=== PATIENT | female | born 1960 | race Caucasian/White ===

== ENCOUNTER 2024-04-12 13:37 | Outpatient (CLI) | payer BC, SELFPAY ==
--- NOTE | ~2024-04-12 | US_ITS ---
EXAMINATION: US abdomen limited DATE: 04/12/2024 14:02 INDICATION: Abnormal liver function tests. TECHNIQUE: Multiple grayscale and Doppler ultrasound images of the abdomen were obtained. COMPARISON: None FINDINGS: The visualized portions of the head, body, and tail of the pancreas are normal. The liver i s normal without focal lesion. There is normal flow in main portal vein. The gallbladder is absent. T he common duct is normal and measures 4 mm. IMPRESSION: 1. Normal right upper quadrant ultrasound status post cholecystectomy. Reviewed, dictated and finalized at location A. RT PATIENTS
== END 2024-04-12 13:38 | disposition home or self-care (01) ==
PROVIDERS: PCP Family Medicine; Visit Provider Family Medicine
DX: R79.89 Other specified abnormal findings of blood chemistry (principal)
CPT/HCPCS: 76705

== ENCOUNTER 2024-06-20 09:00 | Outpatient (RCR) | payer BC, SELFPAY ==
--- NOTE | 2024-05-16 13:16 | OPREHPOC ---
Outpatient Therapy Plan of Care This is a Multidisciplinary Plan of Care that may contain components documented by all disciplines (PT, OT, and ST.) PT Problem 1 PT Problem #1 Knowledge Deficit PT Goal 1 Goal / Goal Update [place] with HEP Target Visit 4 PT Goal 2 Goal / Goal Update Report no pain greater than 2/10 for 2 consecutive weeks Target Visit 8 PT Problem 2 PT Problem #2 Impaired Range of Motion PT Goal 1 Goal / Goal Update 1. Achieve 170 degrees of right shoulder flexion ROM 2. Improve R shoulder external rotation to 80+ degrees to improve self care and capsular mobility Target Visit 8 PT Problem 3 PT Problem #3 Impaired Strength PT Goal 1 Goal / Goal Update 1. Improve R shoulder flexion strength to 4+/5 to improve object lifting ability 2. Improve R shoulder external rotation strength to 4+/5 to improve capsular stability for ADL performance Target Visit 8
--- NOTE | 2024-05-16 13:16 | PTOPEVAL1 ---
Assessment and note entered by Mitchell Young, PT Evaluation Information Assessment Status Evaluation Diagnosis Post operative rotator cuff repair Right ICD-10 Condition Codes (PT) Pain in right shoulder M25.511 Onset 04/04/24 Subjective Information Reports that overall she is doing well, but it felt better in the sling. Discharged her sling last week. She has been sleeping in the recliner for the past 6 weeks due to discomfort. She is right handed and this is her second repair. Wrist motion and pendulums is the only things that she has been doing so far. She has had a lot of trouble sleeping in the bed at this time. Reported Pain Level Pain Score 1: Self Report Assessment PT Clinical Summary Patient presents with typical signs and symptoms of post operative rotator cuff repair at this time . Current focus needs to be on ROM as we are in Phase 2 of protocol. She demonstrates fair tolerance to activity and will benefit from skilled therapy to address ROM and strength deficits per protocol. Plan of Care Interventions Hot Pack/Cold Pack,Manual Therapy,Neuro Re- education,Therapeutic Activities,Therapeutic Exercise PT Services Indicated Yes Treatment Frequency and 2x/week for 8 visits Duration These treatments will address the objective and functional deficits as defined above. The patient will be advanced safely and appropriately in order for the patient to progress towards his/her prior level of function. Additional exercises will be introduced and as well as a comprehensive home exercise program upon discharge, if needed, ?to ensure carryover of functional gains achieved in the clinic. This treatment plan has been reviewed and agreement upon by the patient.
--- NOTE | 2024-06-20 10:26 | OPREHPOC ---
Outpatient Therapy Plan of Care This is a Multidisciplinary Plan of Care that may contain components documented by all disciplines (PT, OT, and ST.) PT Problem 1 PT Problem #1 Knowledge Deficit PT Goal 1 Goal / Goal Update [place] with HEP Target Visit 4 Progress Met PT Goal 2 Goal / Goal Update Report no pain greater than 2/10 for 2 consecutive weeks Target Visit 8 Progress Partially Met PT Problem 2 PT Problem #2 Impaired Range of Motion PT Goal 1 Goal / Goal Update 1. Achieve 170 degrees of right shoulder flexion ROM 2. Improve R shoulder external rotation to 80+ degrees to improve self care and capsular mobility Met Passively Target Visit 8 Progress Met PT Problem 3 PT Problem #3 Impaired Strength PT Goal 1 Goal / Goal Update 1. Improve R shoulder flexion strength to 4+/5 to improve object lifting ability 2. Improve R shoulder external rotation strength to 4+/5 to improve capsular stability for ADL performance Target Visit 8 Progress Not Met
--- NOTE | 2024-06-20 10:26 | PTOPPROG ---
Assessment and note entered by Mitchell Young, PT Evaluation Information Assessment Status Progress Diagnosis Post operative rotator cuff repair Right ICD-10 Condition Codes (PT) Pain in right shoulder M25.511 Onset 04/04/24 Subjective Information Followed up with MD yesterday. He is ordering an MRI to assess if there is any pathology moving forward affecting movement. Patient plans to schedule MRI in next couple days. She is having some consistent anterior shoulder pain when she attempts movement. Shoulder feels loose. Assessment PT Clinical Summary Patient has achieved ROM goals but she is unable to perform effective active or even active assisted motion on this date. Still showing significant functional deficits limiting progression. The concern is currently to possibility of structural loss of integrity to the shoulder and the MRI should help to assess for that. She needs continued intervention to maximize shoulder function to best conservative potential . Plan of Care Interventions Hot Pack/Cold Pack,Manual Therapy,Neuro Re- education,Therapeutic Activities,Therapeutic Exercise PT Services Indicated Yes Treatment Frequency and 1-2x/week for 8 visits Duration These treatments will address the objective and functional deficits as defined above. The patient will be advanced safely and appropriately in order for the patient to progress towards his/her prior level of function. Additional exercises will be introduced and as well as a comprehensive home exercise program upon discharge, if needed, ?to ensure carryover of functional gains achieved in the clinic. This treatment plan has been reviewed and agreement upon by the patient.
--- NOTE | 2024-08-08 08:51 | PTOPDC ---
Assessment and note entered by Mitchell Young, PT Evaluation Information Assessment Status Discharge - Pt Not Present Diagnosis Post operative rotator cuff repair Right ICD-10 Condition Codes (PT) Pain in right shoulder M25.511 Onset 04/04/24 Subjective Information Patient reports follow up MD visit and reports re- tearing of shoulder. Contacted clinic stating that she will undergo rTSA. Assessment PT Clinical Summary Patient to be discharged at this time. Planning on rTSA surgery in future. Plan of Care PT Services Indicated Yes
== END 2024-08-08 11:18 | disposition home or self-care (01) ==
LOC: ANHPT 09:00
PROVIDERS: PCP Family Medicine
DX: M25.511 Pain in right shoulder (principal)
CPT/HCPCS: 97014; 97110; 97140; 97161; 97530; G0283

== ENCOUNTER 2024-12-24 15:45 | Outpatient (RCR) | payer BC, SELFPAY ==
--- NOTE | 2024-10-29 16:46 | OPREHPOC ---
Outpatient Therapy Plan of Care This is a Multidisciplinary Plan of Care that may contain components documented by all disciplines (PT, OT, and ST.) PT Problem 1 PT Problem #1 Knowledge Deficit PT Goal 1 Goal / Goal Update [place] with HEP Target Visit 4 PT Goal 2 Goal / Goal Update Report no pain greater than 1/10 with shoulder ROM activity Target Visit 8 PT Problem 2 PT Problem #2 Impaired Range of Motion PT Goal 1 Goal / Goal Update 1. Achieve 160 degrees of left shoulder flexion ROM as allowed timely per protocol 2. Achieve 80 degrees R shoulder external rotation as allowed per timely protocol Target Visit 10 PT Problem 3 PT Problem #3 Impaired Strength PT Goal 1 Goal / Goal Update 1. Demonstrate ability to perform 5# lift overhead x 5 for functional performance improvement Target Visit 10
--- NOTE | 2024-10-29 16:46 | PTOPEVAL1 ---
Assessment and note entered by Mitchell Young, PT Evaluation Information Assessment Status Evaluation Diagnosis S/p R rTSA ICD-10 Condition Codes (PT) Pain in right elbow M25.521 Onset 10/09/24 Subjective Information Reports that she is not currently having any pain. She has been back to sleeping in her. She feels like her arm is heavy but she is not really having much pain. She follows up with November 19. Reported Pain Level Pain Score 0: Self Report Assessment PT Clinical Summary Patient presents with signs and symptoms consistent with post operative reverse total shoulder arthroplasty. Demonstrate limitation in shoulder mobility and functional strength. Currently still under limitations but short of allowed motion on measurements this date. Will benefit form skilled therapy to address these deficits for mcc functional return. Plan of Care Interventions Manual Therapy,Neuro Re-education,Therapeutic Activities,Therapeutic Exercise PT Services Indicated Yes Treatment Frequency and 2x/week for 8 visits Duration These treatments will address the objective and functional deficits as defined above. The patient will be advanced safely and appropriately in order for the patient to progress towards his/her prior level of function. Additional exercises will be introduced and as well as a comprehensive home exercise program upon discharge, if needed, ?to ensure carryover of functional gains achieved in the clinic. This treatment plan has been reviewed and agreement upon by the patient.
--- NOTE | 2024-12-17 10:00 | OPREHPOC ---
Outpatient Therapy Plan of Care This is a Multidisciplinary Plan of Care that may contain components documented by all disciplines (PT, OT, and ST.) PT Problem 1 PT Problem #1 Knowledge Deficit PT Goal 1 Goal / Goal Update [place] with HEP Target Visit 4 Progress Met PT Goal 2 Goal / Goal Update Report no pain greater than 1/10 with shoulder ROM activity Target Visit 8 Progress Met PT Problem 2 PT Problem #2 Impaired Range of Motion PT Goal 1 Goal / Goal Update 1. Achieve 160 degrees of R shoulder flexion ROM as allowed timely per protocol 2. Achieve 80 degrees R shoulder external rotation as allowed per timely protocol 12/17/24: Still working on external rotation Target Visit 16 Progress Partially Met PT Problem 3 PT Problem #3 Impaired Strength PT Goal 1 Goal / Goal Update 1. Demonstrate ability to perform 5# lift overhead x 5 for functional performance improvement 12/17/24: Progressing lifting ability Target Visit 16 Progress Partially Met PT Goal 2 Goal / Goal Update 1. Improve right shoulder internal rotation strength to 4/5 to improve gross shoulder stability Target Visit 16
--- NOTE | 2024-12-17 10:00 | PTOPPROG ---
Assessment and note entered by Mitchell Young, PT Evaluation Information Assessment Status Progress Diagnosis S/p R rTSA ICD-10 Condition Codes (PT) Pain in right elbow M25.521 Onset 10/09/24 Subjective Information Reports that overall she is doing well. Denies any pain at rest. She has been doing some light band work at home since she has been on restriction with work. Assessment PT Clinical Summary Patient has seen excellent shoulder ROM improvement on this date. She has been compliant with HEP and demonstrates appropriate level of progression to work on shoulder functional strength within 5# restriction. Will benefit from continuation of therapy at this time. Plan of Care Interventions Manual Therapy,Neuro Re-education,Therapeutic Activities,Therapeutic Exercise PT Services Indicated Yes Treatment Frequency and 2x/week for 8 visits Duration These treatments will address the objective and functional deficits as defined above. The patient will be advanced safely and appropriately in order for the patient to progress towards his/her prior level of function. Additional exercises will be introduced and as well as a comprehensive home exercise program upon discharge, if needed, ?to ensure carryover of functional gains achieved in the clinic. This treatment plan has been reviewed and agreement upon by the patient.
--- NOTE | 2025-01-07 07:58 | PTOPDC ---
Assessment and note entered by Mitchell Young, PT Evaluation Information Assessment Status Discharge - Pt Not Present Diagnosis S/p R rTSA ICD-10 Condition Codes (PT) Pain in right elbow M25.521 Onset 10/09/24 Subjective Information Patient contacted clinic stating that she had been released by the MD at this time to independent activity. Patient requested cancellation of therapy and transition to independent strengthening for termite control service representative resolution of symptoms . Stated that she had no complaints or concerns at this time. Assessment PT Clinical Summary Patient to be discharged per patient request and with MD release. Reviewed termite control service representative expectations and exercises to work towards. No concerns at this time with discharge. Please refer to last treatment note for discharge status. Plan of Care PT Services Indicated Yes
== END 2025-01-07 09:55 | disposition home or self-care (01) ==
LOC: ANHGOSHPT 15:45
PROVIDERS: PCP Family Medicine
DX: M75.101 Unspecified rotator cuff tear or rupture of right shoulder, not specified as traumatic (principal); M12.811 Other specific arthropathies, not elsewhere classified, right shoulder
CPT/HCPCS: 97110; 97140; 97161; 97530